=== PATIENT | male | born 1970 | race Caucasian/White ===

== ENCOUNTER 2016-06-08 09:57 | Day surgery (SDC) | payer OTHER ==
[~2016-06-08 09:57] MED LIST: LACTATED RINGERS 1,000 ML IV SCH; MIDAZOLAM HCL 5 MG/5 ML VIAL IV PRN
[2016-06-08] MEDS ORDERED: IV START KIT ONE ×2 (10:17→11:04)
[2016-06-08] MEDS ORDERED: LACTATED RINGERS 1,000 ML ONE (10:17)
[2016-06-08] MEDS ORDERED: MIDAZOLAM HCL 5 MG/5 ML VIAL ONE (10:59)
[2016-06-08] MEDS ORDERED: FENTANYL 5 ML ONE (10:59)
[2016-06-08] MEDS ORDERED: LIDOCAINE 1% (PRES FREE) 30 ML VIAL ONE (11:01)
[2016-06-08] MEDS ORDERED: FENTANYL 100 MCG/2 ML VIAL ONE ×2 (12:07→13:01)
[2016-06-08] MEDS: FENTANYL 250 MCG/5 ML AMP IV PRN ×2 (12:10→13:07)
[2016-06-08] MEDS ORDERED: SODIUM CHLORIDE 0.9% FLUSH 10 ML ONE (13:04)
--- NOTE | 2016-06-13 10:44 | SURGPATH ---
[facility] [address] [place] [id number] Patient Name: TEENA PARNELL MR#: [id number] : 1970 Gender: M Specimen #: [id number] Collected: 06/08/2016 Received: 06/12/2016 Reported: 06/13/2016 Submitting Phys: JEANINE KRUEGER Copy To Phys: [facility] - HIM Clinical History / Pre-Operative Diagnosis: Chronic hepatitis, abnormal liver function tests Specimen Source / Surgical Procedure Performed: Liver biopsy Interpretation: LIVER, BIOPSY: - LIVER WITH MINIMAL ALTERATION (GRADE 0-1, STAGE 0) - 2+ IRON DEPOSITION Comment: There is 2+ iron deposition within the liver which seems higher than expected for the degree of inflammation in the liver. Correlation with ferritin values is recommended to help assess total liver iron and the possible need for hemochromatosis testing. Electronically Signed Out Bernie Rader M.D. Gross Description: The specimen is received in formalin labeled with the patient's name and "liver biopsy". The specimen consists of three delicate needle core biopsies of lucas soft tissue, 0.7-1.5 cm in length. Submitted in toto in one cassette. STEPHANIE Darby Microscopic Description: Sections show cores of liver tissue with adequate portal tracts for evaluation. Portal tracts are small and sharply demarcated with minimal fibrosis. A trichrome stain shows no significant fibrosis. The portal tracts show very minimal inflammation with no interface activity. A few inflammatory cells are seen within the lobules, but no degenerating hepatocytes are present. An iron stain shows 2+ iron deposition. 1: 60202, 03206, 57952 B18.2
--- NOTE | 2016-06-14 11:11 | PROCNOTE ---
Margi Shaikh : 1970 DATE: 06/14/2016 This 45-year-old male patient within the practice of Zohra Duncan, nurse practitioner underwent needle liver biopsy on June 08 for chronic hepatitis C. That biopsy showed only grade I inflammation with no fibrosis or Cirrhosis. The patient has been contacted and given the results and told that an attempt to prior authorize treatment with his insurance will be made. Should that be disallowed by his insurance because of the very minimal findings on biopsy, a repeat biopsy in approximately 5 years would then be recommended. Medical follow up will by Zohra Duncan, nurse practitioner. JOB: [id number] CC: Zohra Duncan NP [facility] in [place]
== END 2016-06-08 14:01 | disposition home or self-care (01) ==
LOC: SDC 09:57
PROVIDERS: ATTEND Internal Medicine Gastroenterology
PROC: 0F903ZX Drainage of Liver, Percutaneous Approach, Diagnostic (ICD-10-PCS; principal; 2016-06-08)
DX: B18.2 Chronic viral hepatitis C (principal); R74.0 Nonspecific elevation of levels of transaminase and lactic acid dehydrogenase [LDH]; F32.9 Major depressive disorder, single episode, unspecified; F17.200 Nicotine dependence, unspecified, uncomplicated
CPT/HCPCS: 76942; 47000; J3010 ×3; J2250; J2001; J7120